=== PATIENT | male | born 1955 | race Caucasian/White ===

== ENCOUNTER 2019-12-28 17:19 | Emergency (ER) | payer OTHER ==
--- OUTSIDE RECORDS SUMMARY | 2019-12-28 17:21 | XMS REPORT | Clinical Summary ---
:1955 Author Organization [facility] Address [address] [place] [address] Care Team Providers Name Role Phone Elizabeth Paige MD Primary Care Provider Allergies Not on File Medications Not on file Active Problems Not on file Encounters Date Type Specialty Care Team Description 12/20/2019 Hospital Encounter Radiology Cem Franks, Calculus of kidney 12/20/2019 Travel 12/20/2019 Transcribe Orders Access Cem Franks C alculus of kidney (Primary Dx) 12/20/2019 Transcribe Orders Access Cem Franks C alculus of kidney (Primary Dx) 10/11/2019 Hospital Encounter Radiology Cem Franks Calculus of kidney 10/11/2019 Travel 10/11/2019 Transcribe Orders Access Cem Franks C alcjerrod of kidney (Primary Dx) after 12/27/2018 Social History Tobacco Use Types Packs/Day Years Used Date Never Assessed Sex Assigned at Date Recorded Not on file COVID-19 Exposure Response Date Recorded In the last month, have you been in contact with No / Unsure 12/20/2019 9:36 AM SENIOR COMPLIANCE OFFICER someone who was confirmed or suspected to have Coronavirus / COVID-19? Last Filed Vital Signs Not on file Plan of Treatment Health Maintenance Due Date Last Done Comments DIABETES: RETINAL EYE EXAM 1966 DIABETIC FOOT EXAM 1966 URINE MICROALBUMIN 1966 COLONOSCOPY SCREENING 2006 SHINGLES VACCINES (#1) 2006 INFLUENZA VACCINE 09/08/2019 Procedures Procedure Name Priority Date/Time Associated Diagnosis Comme nts XR KUB KIDNEY Routine 12/20/2019 10:09 AM Calculus of kidney R esults for this URETER BLADDER SENIOR COMPLIANCE OFFICER procedure are in the results section. XR KUB KIDNEY Routine 10/11/2019 1:29 PM Calculus of kidney R esults for this URETER BLADDER CDT procedure are in the results section. after 12/27/2018 Results XR Kub Kidney Ureter Bladder (12/20/2019 10:09 AM SENIOR COMPLIANCE OFFICER)Only the most recent of2 resultswithin the time period is included. Specimen Narrative Performed At EXAMINATION: XR KUB KIDNEY URETER BLAD [facility] CLINICAL HISTORY: 64 years Male N20.0 Calculus of kidney, X-RAY COMPARISON: October 11, 2019 IMPRESSION: Bowel gas pattern is nonobstructive. 2 calculi are now present lumbar ureter, a 7 mm calculus lateral to the L4 transverse p rocess, a fibroid calculus lateral to the L5 transverse process. Cholecy stectomy clips, appendectomy clips, multiple stable probable vascular calcifications noted in the central left pelvis. Regional skeletal structures are within normal limits for age. [id number] Marshall Thrasher, personally reviewed the images and re sident's/fellow's findings and agree with the final report. Procedure Note Hm Interface, Radiology Results Incoming - 12/20/2019 11:18 AM SENIOR COMPLIANCE OFFICER EXAMINATION: XR KUB KIDNEY URETER BLADDER CLINICAL HISTORY: 64 years Male N20.0 C alculus of kidney, X-RAY COMPARISON: October 11, 2019 IMPRESSION: Bowel gas pattern is nonobstructive. 2 c alculi are now present lumbar ureter, a 7 mm calculus lateral to the L4 transverse process, a fibroid calculus lateral to the L5 transverse process. Cholecystectomy clips, appendectomy clips, multiple stable probable vascular calcifications noted i n the central left pelvis. Regional skeletal structures are within normal limits for age. [id number] Marshall Thrasher, personally reviewed the images and resident's/fellow's findings and agree with the final report. 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
--- OUTSIDE RECORDS SUMMARY | 2019-12-28 17:21 | XMS REPORT | Continuity of Care Document ---
:1955 Author Organization [facility] t Address [address] [place] [address] Care Team Providers Name Role Phone Elizabeth Paige MD Primary Care Physician Janay Franks MD Attending Clinician Payers Payer Name Policy Type Policy Effective Date Expiration Date Sour ce Number AETNAAETNA PPO [id number] 2018 [place] OPEN 00:00:00 Religious [id number] 2018-Presen tPPO Problems This patient has no known problems. Allergies, Adverse Reactions, Alerts This patient has no known allergies or adverse reactions. Social History Social Habit Start Date Stop Date Quantity Comments Source Sex Assigned At Segundo [place] Exposure to SARS-CoV-2 Not sure Sadiq York (event) Medications This patient has no known medications. Procedures Procedure Date / Time Performed Performing Clinician [facility] e XR KUB KIDNEY URETER 2019-12-20 10:09:05 Vinh Franks BLADDER XR KUB KIDNEY URETER 2019-10-11 13:29:47 Vinh Franks BLADDER Plan of Care Planned Activity Planned Date Details Comments Source Future Scheduled 2019-09-08 INFLUENZA VACCINE [place] [facility] Test 00:00:00 [code = INFLUENZA VACCINE] Future Scheduled 2006 COLONOSCOPY SCREENING Sadiq membreno Religious Test 00:00:00 [code = COLONOSCOPY SCREENING] Future Scheduled 2006 SHINGLES VACCINES (#1) H [place] Religious Test 00:00:00 [code = SHINGLES VACCINES (#1)] Future Scheduled 1966 DIABETES: RETINAL EYE [place] [facility] Test 00:00:00 EXAM [code = DIABETES: RETINAL EYE EXAM] Future Scheduled 1966 DIABETIC FOOT EXAM [place] Religious Test 00:00:00 [code = DIABETIC FOOT EXAM] Future Scheduled 1966 URINE MICROALBUMIN [place] [facility] Test 00:00:00 [code = URINE MICROALBUMIN] Encounters Start End Encounter Admission Attending Care Care Encounter Source Date/Time Date/Time Type Type Clinicians Facility Department ID 2019-12-20 2019-12-20 [facility] [id number] [place] 00:00:00 00:00:00 [facility] [address] 2019-10-11 2019-10-11 [facility] [id number] [place] 00:00:00 00:00:00 V[facility] [address] Results Test Description Test Time Test Comments Results Result Sour e Comments XR Kub Kidney 2019-12-09 [facility] [place] [facility] Ureter Bladder 2 Radiology Results [facility] 11:15:42 - 12/20/2019 11:18 AM CSTEXAMINATION: XR KUB KIDNEY URETER BLADDERCLINICAL HISTORY: 64 years Male N20.0 Calculus of kidney, X-RAYCOMPARISON: October 11, 2019IMPRESSION:Bowel gas pattern is nonobstructive. 2 calculi are now present lumbar ureter, a 7 mm calculus lateral to the L4 transverse process, a fibroid calculus lateral to the L5 transverse process. Cholecystectomy clips, appendectomy clips, multiple stable probable vascular calcifications noted in the central left pelvis. Regional skeletal structures are within normal limits for age.[id number], Marshall Womack, personally reviewed the images and resident's/fellow's findings and agree with the final report.
[2019-12-28] MEDS ORDERED: MORPHINE 4 MG/ML SYR ONE (18:05)
[2019-12-28] MEDS ORDERED: ONDANSETRON 4 MG/2 ML VIAL ONE (18:05)
[2019-12-28] MEDS ORDERED: NA CHLORIDE 0.9% 1,000 ML ONE (18:07)
[2019-12-28 18:08] LABS: Absolute Lymphocytes (CBC) 1.3 K/uL (0.7-4.9); Basophils % 0.1 % (0-1.3); Hematocrit 41.7 % (39.6-49.0); Lymphocytes % 9.1 % (15.3-44.8); MPV 8.9 fL (7.6-11.3)
[2019-12-28 18:15] LABS: Albumin 3.8 g/dL (3.4-5.0); Bilirubin Direct 0.3 mg/dL (0-0.2); Protein, Total 7.4 g/dL (6.4-8.2)
--- NOTE | 2019-12-28 18:19 | RAD REPORT ---
EXAM DESCRIPTION: CT - Stone Protocol - 12/28/2019 5:52 pm CLINICAL HISTORY: right flank pain COMPARISON: No comparisons TECHNIQUE: Axial 5 mm thick images were obtained without oral or IV contrast. The [id number] span s the entirety of the system including uppermost abdomen and lung bases. All CT scans are performed using dose optimization technique as appropriate and may include automated exposure control or mA/KV adjustment according to patient size. FINDINGS: Mild hydronephrosis present of the right side pelvis and calices. There is a 3.8 centimete r cyst in the medial mid right kidney that displaces the pelvis laterally. Mild perinephric stranding is present. Punctate calcifications present in the lower pole of the right kidney with a punctate 2 mm calcification in upper pole calyx. Double pigtail stent is in place. Superior pigtail is at the lo wer portion of the pelvis. Several small stone fragments are seen along the proximal ureter. There is stranding in the fatty tissues surrounding the ureter. Distal pigtail is curled near the UVJ. There is a migration anomaly with the left kidney remaining low in the pelvis. There is no hydronephrosis o f the left kidney. There are numerous nonobstructing 3-11 mm calyx calculi present. An exophytic 4 ce ntimeter cyst projects from the right lateral margin of this kidney. No suspicious renal masses. Isod ense masses and pyelonephritis are not excluded on a stone protocol CT scan. No significant adrenal f inding. Small amount of air is present in the lumen of the urinary bladder not unexpected given the stent shannen cement procedure. Attenuation of the urinary bladder fluid and attenuation of the fluid in the right renal pelvis ranges from 40-60 Hounsfield units. This is relatively homogeneous. This could be dilute d contrast if there was retrograde injection. Blood can have a similar attenuation value. Correlation is needed with UA findings. Imaged portions of the liver, spleen and pancreas show no suspicious findings on non-contrast imaging . Cholecystectomy clips are present. No biliary tree dilatation. No acute bowel findings. Moderate stool volume distends but does not dilate the cecum and ascending c olon. No mass or bulky lymphadenopathy. A very small fat only umbilical hernia is present. No free air or p neumatosis. No other area of inflammatory or edematous stranding. No significant bony abnormality. IMPRESSION: Double pigtail stent is in place appearing well positioned within the right collecting s ystem. Several small stone fragments are seen along the proximal ureter. Mild hydronephrosis is present. There is stranding along the entire course of the ureter and a small amount of stranding surrounding the right kidney. No free fluid collection or other abnormality to suspect tear of the ureter. Increased attenuation of the urine could indicate dilution of contrast used for the stent placement procedure. Blood in the c ollecting system can have a similar appearance. Correlation is needed with UA findings. Left pelvic kidney with numerous 3-11 mm sized calculi. No left-sided hydronephrosis. Isodense masses and pyelonephritis are not excluded on stone protocol technique.
--- NOTE | 2019-12-28 18:59 | ER ---
Nurse's Notes [facility] Name: Frankie Age: 64 yrs Sex: Male : 1955 Arrival Date: 12/28/2019 Time: 17:20 Bed 3 Private MD: Diagnosis: Urinary calculus, unspecified Presentation: 12/27 17:31 Chief complaint: Patient states: R flank pain x a few hours. Pt reports he has kidney ss stones and he had a ureteral stent placed today in [place]. Coronavirus screen: Client denies travel out of the [place] in the last 14 days. Ebola Screen: Patient denies exposure to infectious person. Patient denies travel to an Ebola-affected area in the 21 days before illness onset. Initial Sepsis Screen: Does the patient meet any 2 criteria? No. Patient's initial sepsis screen is negative. Does the patient have a suspected source of infection? No. Patient's initial sepsis screen is negative. Risk Assessment: Do you want to hurt yourself or someone else? Patient reports no desire to harm self or others. Onset of symptoms was December 28, 2019. 17:31 Method Of Arrival: Ambulatory ss 17:31 Acuity: PALMER 2 ss Historical: - Allergies: 17:32 No Known Allergies; ss - PMHx: 17:32 Kidney stones; ss - Immunization history:: Adult Immunizations up to date. - Social history:: Smoking status: Patient denies any tobacco usage or history of. Screenin:05 Abuse screen: Denies threats or abuse. Denies injuries from another. Nutritional jl7 screening: No deficits noted. Tuberculosis screening: No symptoms or risk factors identified. Fall Risk IV access (20 points). Total Horowitz Fall Scale indicates No Risk (0-24 pts). Assessment: 17:45 General: Appears distressed, uncomfortable, Behavior is cooperative, appropriate for jl7 age, anxious. Pain: Complains of pain in right lower quadrant Pain currently is 10 out of 10 on a pain scale. Neuro: Level of Consciousness is awake, alert, obeys commands, Oriented to person, place, time, situation. Cardiovascular: Patient's skin is warm and dry. Respiratory: Airway is patent Respiratory effort is even, unlabored, Respiratory pattern is regular, symmetrical. Derm: Skin is pink, warm \T\ dry. 18:49 Reassessment: Patient appears in no apparent distress at this time. Patient and/or jl7 family updated on plan of care and expected duration. Pain level reassessed. Patient is alert, oriented x 3, equal unlabored respirations, skin warm/dry/pink. Melo at bedside discussing results and POC Patient states feeling better. Patient states symptoms have improved. Vital Signs: 17:31 Pulse 65; Resp 20; Temp 98.6(TE); Pulse Ox 99% on R/A; Weight 97.52 kg; Height 6 ft. 0 ss in. (182.88 cm); Pain 10/10; 18:05 BP 138 / 75; Pulse 58; Resp 15; Pulse Ox 100% ; Pain 3/10; jl7 18:57 BP 140 / 67; Pulse 55; Resp 17; Pulse Ox 98% ; jl7 17:31 Body Mass Index 29.16 (97.52 kg, 182.88 cm) ED Course: 17:20 Patient arrived in ED. mr 17:25 Melo Swenson PA is PHCP. [facility] 17:25 Steve Villasenor MD is Attending Physician. [facility] 17:32 Triage completed. ss 17:32 Arm band placed on right wrist. ss 17:48 Mona Carney, BENNIE is Primary Nurse. jl7 17:48 Initial lab(s) drawn, by ky, sent to lab. Inserted saline lock: 20 gauge in right dh3 antecubital area, using aseptic technique. Blood collected. 17:53 CT Stone Protocol In Process Unspecified. EDMS 18:05 Patient has correct armband on for positive identification. Placed in gown. Bed in low jl7 position. Call light in reach. Side rails up X 1. Pulse ox on. NIBP on. 19:12 Primary Nurse role handed off by Mona Carney, BENNIE eb 19:22 Hany Weldon, BENNIE is Primary Nurse. rv 19:23 No provider procedures requiring assistance completed. IV discontinued, intact, rv bleeding controlled, No redness/swelling at site. Pressure dressing applied. Administered Medications: 17:55 Drug: NS 0.9% 1000 ml Route: IV; Rate: 1 bolus; Site: right antecubital; jl7 19:30 Follow up: IV Status: Completed infusion; IV Intake: 1000ml rv 17:55 Drug: Zofran (Ondansetron) 4 mg Route: IVP; Site: right antecubital; jl7 18:05 Follow up: Response: No adverse reaction jl7 17:57 Drug: morphine 4 mg Route: IVP; Site: right antecubital; jl7 18:05 Follow up: Response: No adverse reaction; Pain is decreased jl7 Intake: 19:30 IV: 1000ml; Total: 1000ml. rv Outcome: 18:58 Discharge ordered by . rita 19:23 Discharged to home ambulatory, with family. rv 19:23 Condition: good 19:23 Discharge instructions given to patient, Instructed on discharge instructions, follow up and referral plans. medication usage, Demonstrated understanding of instructions, follow-up care, medications, Prescriptions given X 1. 19:23 Patient left the ED. rv Signatures: Dispatcher [employer] EDMS Melo Swenson PA PA jmm Rivera, Mary mr MertAlexandrea boucher, RN RN Mona Chao RN RN jl7 Allison Parada [facility] Arlyn Geronimo Ronaldo RN RN rv
--- NOTE | 2019-12-28 18:59 | EDPHYS ---
Physician Documentation [facility] Name: Frankie Age: 64 yrs Sex: Male : 1955 Arrival Date: 12/28/2019 Time: 17:20 Bed 3 Private MD: ED Physician Steve Villasenor HPI: 12/27 17:46 This 64 yrs old Male presents to ER via Ambulatory with complaints of flank jmm pain. 17:46 Onset: The symptoms/episode began/occurred acutely, today. Modifying factors: The jmm symptoms are alleviated by nothing. the symptoms are aggravated by nothing. This is a 64 year old male with a history of renal stones that presents to the ED with complaints of right flank pain beginning approx 1.5 hours ago. This occurred while driving him from an outpatient ureteral stent placement for a ureteral stone. . Historical: - Allergies: 17:32 No Known Allergies; ss - PMHx: 17:32 Kidney stones; ss - Immunization history:: Adult Immunizations up to date. - Social history:: Smoking status: Patient denies any tobacco usage or history of. ROS: 17:46 Constitutional: Negative for fever, chills, and weight loss, Cardiovascular: Negative jmm for chest pain, palpitations, and edema, Respiratory: Negative for shortness of breath, cough, wheezing, and pleuritic chest pain. 17:46 Abdomen/GI: Positive for abdominal pain, nausea. 17:46 All other systems are negative. Exam: 17:46 Head/Face: atraumatic. Eyes: EOMI, no conjunctival erythema appreciated ENT: Moist jmm Mucus Membranes Neck: Trachea midline, Supple Chest/axilla: Normal chest wall appearance and motion. Cardiovascular: Regular rate and rhythm. No edema appreciated Respiratory: Normal respirations, no respiratory distress appreciated Abdomen/GI: Non distended, soft Back: Normal ROM Skin: General appearance color normal MS/ Extremity: Moves all extremities, no obvious deformities appreciated, no edema noted to the lower extremities Neuro: Awake and alert, normal gait Psych: Behavior is normal, Mood is normal, Patient is cooperative and pleasant 17:46 Constitutional: The patient appears alert, awake, uncomfortable. 17:46 Back: CVA tenderness, that is moderate, is noted on the right. Vital Signs: 17:31 Pulse 65; Resp 20; Temp 98.6(TE); Pulse Ox 99% on R/A; Weight 97.52 kg; Height 6 ft. 0 ss in. (182.88 cm); Pain 10/10; 18:05 BP 138 / 75; Pulse 58; Resp 15; Pulse Ox 100% ; Pain 3/10; jl7 18:57 BP 140 / 67; Pulse 55; Resp 17; Pulse Ox 98% ; jl7 17:31 Body Mass Index 29.16 (97.52 kg, 182.88 cm) ss MDM: 17:29 Patient medically screened. [facility] 18:56 Data reviewed: vital signs, nurses notes. Counseling: I had a detailed discussion with [facility] the patient and/or guardian regarding: the historical points, exam findings, and any diagnostic results supporting the discharge/admit diagnosis, lab results, radiology results, the need for outpatient follow up, to return to the emergency department if symptoms worsen or persist or if there are any questions or concerns that arise at home. ED course: Patient's pain is relieved in the ED. Patient is given strict return precautions. Patient understood and agrees with the plan of care. . 12/27 17:30 Order name: Basic Metabolic Panel; Complete Time: 18:24 [facility] 12/27 17:30 Order name: CBC with Diff; Complete Time: 18:24 [facility] 12/27 17:30 Order name: Hepatic Function; Complete Time: 18:24 [facility] 12/27 17:30 Order name: Lipase; Complete Time: 18:24 [facility] 12/27 17:30 Order name: CT Stone Protocol; Complete Time: 18:24 [facility] 12/27 17:30 Order name: IV Saline Lock; Complete Time: 17:51 [facility] 12/27 17:30 Order name: Labs collected and sent; Complete Time: 17:51 [facility] Administered Medications: 17:55 Drug: NS 0.9% 1000 ml Route: IV; Rate: 1 bolus; Site: right antecubital; [facility] 19:30 Follow up: IV Status: Completed infusion; IV Intake: 1000ml rv 17:55 Drug: Zofran (Ondansetron) 4 mg Route: IVP; Site: right antecubital; 7 18:05 Follow up: Response: No adverse reaction [facility] 17:57 Drug: morphine 4 mg Route: IVP; Site: right antecubital; 7 18:05 Follow up: Response: No adverse reaction; Pain is decreased jl7 Disposition: 12/28/19 18:58 Discharged to Home. Impression: Urinary calculus, unspecified. - Condition is Stable. - Discharge Instructions: Kidney Stones. - Prescriptions for Tylenol- Codeine #3 300-30 mg Oral Tablet - take 1 tablet by ORAL route every 6 hours As needed; 12 tablet. - Medication Reconciliation Form, Thank You Letter, Antibiotic Education, Prescription Opioid Use form. - Follow up: Private Physician; When: 2 - 3 days; Reason: Recheck today's complaints, Continuance of care, Re-evaluation by your physician. Addendum: 12/30/2019 07:31 Co-signature as Attending Physician, Steve Villasenor MD. r n Signatures: Dispatcher [employer] EDMS Melo Swenson PA PA jmm Nieto, Roman, MD MD rn Smirch, Shelby, RN RN ss Leal, Jahala, RN RN jl7 Hany Weldon RN RN rv Corrections: (The following items were deleted from the chart) 12/27 18:59 17:30 Urine Dipstick-Ancillary ordered. rita jl7 19:23 18:58 12/28/2019 18:58 Discharged to Home. Impression: Urinary calculus, unspecified. rv Condition is Stable. Forms are Medication Reconciliation Form, Thank You Letter, Antibiotic Education, Prescription Opioid Use. Follow up: Private Physician; When: 2 - 3 days; Reason: Recheck today's complaints, Continuance of care, Re-evaluation by your physician. [facility]
[2019-12-29 05:28] VITALS: TEMP 98.6
[2019-12-29 05:31] VITALS: BP 140/67; O2SAT 98
== END 2019-12-28 19:23 | disposition home or self-care (01) ==
LOC: ER 17:19
DX: N20.9 Urinary calculus, unspecified (principal); Z87.442 Personal history of urinary calculi
CPT/HCPCS: 96361; 85025; 80048; 36415; 80076; 83690; 76377; 74176; 96375; 96374; 99284; J7030; J2405